=== PATIENT | female | born 1980 | race Caucasian/White ===

== ENCOUNTER 2017-06-17 12:43 | Emergency (ER) | payer BC, OTHER ==
[2017-06-17 12:58] VITALS: RESP 18
--- NOTE | 2017-06-17 12:58 | EDPHY ---
H & P Time Seen by Provider: 06/17/17 12:47 HPI/ROS: CHIEF COMPLAINT: Head and neck pain HISTORY OF PRESENT ILLNESS: 37-year-old female presents as a limited trauma activation with head and neck pain. She was reaching above her head when a 25 lb box of frozen dough fell onto the back of her head. The box fell from a height of approximately 2 ft above her head, struck the back of her head and then landed on the floor. She was able to walk out of the freezer and to seek help. She did not lose consciousness. She now has moderate head and neck pain. She did not otherwise hurt herself. REVIEW OF SYSTEMS: Constitutional: No weakness Eyes: No visual changes or eye pain ENT: No dental trauma Respiratory: No shortness of breath Cardiac: No chest pain Gastrointestinal: No abdominal pain, no vomiting Back:No pain or injury Genitourinary: No hematuria Musculoskeletal: No joint pain Skin: No lacerations Neurological: no dizziness Past Medical/Surgical History: Bipolar disorder Social History: Works At [email or web address] Physical Exam: General Appearance: Alert, pleasant Head: Atraumatic, no swelling or tenderness palpable Eyes: No conjunctival erythema, PERRLA, EOMI ENT, Mouth: No hemotympanum, no oral trauma, no facial bony tenderness Neck: In cervical spine collar, collar briefly removed and reveals diffuse midline and paraspinous tenderness to light palpation Respiratory: No chest wall tenderness, lungs clear bilaterally Cardiovascular: Regular rate and rhythm Abdomen: Abdomen is soft and nontender Skin: No lacerations, no abrasions Back: No midline T/L/S tenderness Extremities: Pelvis is stable and nontender Neurological: A&Ox3, normal motor function, normal sensory exam, cranial nerves intact Psychiatric: Flat affect Constitutional: Initial Vital Signs Temperature (C) 36.6 C 06/17/17 12:43 Heart Rate 72 06/17/17 12:43 Respiratory Rate 18 06/17/17 12:43 Blood Pressure 117/86 H 06/17/17 12:43 O2 Sat (%) 97 06/17/17 12:43 O2 Delivery Mode Room Air Allergies/Adverse Reactions: albuterol Allergy (Verified 06/17/17 13:00) ibuprofen Allergy (Verified 06/17/17 13:00) Home Medications: Medication Instructions Recorded Gabapentin 06/17/17 [place] Carbonate 06/17/17 Seroquel 06/17/17 Medical Decision Making - Diagnostics Imaging Results: Imaging Impressions Cervical Spine CT 06/17/17 12:55 Impression: 1. No significant intracranial abnormality seen. 2. Normal CT cervical spine. 3. Left thyroid nodule. Consider thyroid ultrasound at some point for further characterization. If symptoms worsen, additional imaging may be necessary. Findings discussed with Stacey Adams M.D. at 13:28 hour, 06/17/2017. Head CT 06/17/17 12:55 Impression: 1. No significant intracranial abnormality seen. 2. Normal CT cervical spine. 3. Left thyroid nodule. Consider thyroid ultrasound at some point for further characterization. If symptoms worsen, additional imaging may be necessary. Findings discussed with Stacey Adams M.D. at 13:28 hour, 06/17/2017. Procedures: : CT scan results discussed with the patient. The cervical spine was cleared by me after negative CT scan. She continues to have diffuse tenderness , without localizing features. Range of motion without apparent pain however. Tylenol 650 mg orally given. Head injury precautions given. ED Course/Re-evaluation: Trauma downgraded on patient arrival. This pt presents with BENTLEY and neck pain after a minor mechanism of trauma. CT head/Cspine ordered. CT results negative, d/w pt. Cspine cleared after negative CT scan. Neuro exam unchanged. Tylenol instrucitons given, pt unable to take NSAIDS. Safe/stable for d/c. Differential Diagnosis: Differential diagnosis includes though it is not limited to fracture, intracranial hemorrhage, pneumothorax, hemothorax, intra-abdominal hemorrhage. Departure - Departure Disposition: Home, Routine, Self-Care Clinical Impression: Head injury, acute Qualifiers: Encounter type: initial encounter Qualified Code(s): S09.90XA - Unspecified injury of head, initial encounter Neck strain Qualifiers: Encounter type: initial encounter Qualified Code(s): S16.1XXA - Strain of muscle, fascia and tendon at neck level, initial encounter Condition: Good Instructions: Cervical Strain (ED), Head Injury (ED) Additional Instructions: You have a thyroid nodule. You will need a follow-up ultrasound. Discuss with your primary care physician. Tylenol 650 mg every 4 hr as needed for pain. Referrals: Patient,NotPresent [Unknown] - As per Instructions Portia Nelson MD [[facility] Primary Care Provider] - As per Instructions Stand Alone Forms: Work Excuse
[2017-06-17 13:47] VITALS: BP 105/68; PULSE 75; TEMP 98.1; O2SAT 95
== END 2017-06-17 14:23 | disposition home or self-care (01) ==
LOC: EDUNIT#
DX: S09.90XA Unspecified injury of head, initial encounter (principal); S16.1XXA Strain of muscle, fascia and tendon at neck level, initial encounter; W20.8XXA Other cause of strike by thrown, projected or falling object, initial encounter